=== PATIENT | male | born 1960 | race Native Hawaiian/Other Pacific Islander ===

== ENCOUNTER 2016-11-09 09:44 | Emergency (ER) ==
[~2016-11-09] VITALS: Ht 170.2 cm; Wt 70.8 kg
[2016-11-09] MEDS ORDERED: METF10002 PO (10:05)
--- NOTE | 2016-11-09 10:40 | NUR ---
NILSON SANCHEZ ABLE TO REMOVE THE FLY FROM LEFT EAR AND A PIECE OF MATERIAL FRON RIGHT EAR WITHOUT DIFFICULTY.
== END 2016-11-09 10:43 | disposition home or self-care (01) ==
LOC: ER 09:49
DX: T16.2XXA Foreign body in left ear, initial encounter (principal); E11.9 Type 2 diabetes mellitus without complications; X58.XXXA Exposure to other specified factors, initial encounter; Y93.89 Activity, other specified; Y92.9 Unspecified place or not applicable; Y99.9 Unspecified external cause status
CPT/HCPCS: A4663